=== PATIENT | male | born 1960 | race Caucasian/White ===

== ENCOUNTER 2025-09-04 15:28 | Outpatient (AMB) | payer OTHER, SELFPAY ==
--- NOTE | 2025-09-04 15:29 | MHC.PC.OV ---
Vital Signs 09/04/25 15:42 Height 5 ft 8 in Weight 204 lb 2 oz BMI 31.0 BP 168/68 H Blood Pressure Location Lt brachial Position Sitting Respiration 18 Pulse 96 Pulse Source Pulse Oximeter Temp 98 F Temp Source Oral Pulse Oximetry (%) 96 Oxygen Delivery Method Room Air Intake Visit Reasons: [employer]ER-Had two strokes Intake Note: Patient present to establish care. 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 Accompanied by: Self / Same As Patient Allergies No Known Allergies Allergy (Verified 09/04/25 15:37) Medication List - Last Reconciled 09/04/25 by Srinivas Schaefer MD No Known Home Meds Tobacco use date assessed: 09/04/25 Fall risk assessment: No Falls in past year Last assessed Fall Risk: 09/04/25 Dental Screening Dental Screen Date: 09/04/25 Did you have a dental visit in the last 12 months?: No Did you have a dental problem in the last 6 months where you did not have access to dental care?: No Was dental information given to patient?: Patient has dentist HPI HPI Comments History of Present Illness Details History of Present Illness The patient is a 65 year old male presenting for a general health evaluation and management of multiple concerns, including a history of stroke, elevated blood pressure, and bilateral shoulder pain. Hypertension: His blood pressure was noted to be slightly high during the visit, though he reports a past episode about three years ago where his high blood pressure resolved on its own after a visit for not feeling well. He has never taken medication for hypertension. History of cerebellar stroke: The patient has a history of a cerebellar stroke, after which he was told by doctors that they were surprised he was alive. He continues to feel that he is not fine and has not fully recovered from the event. At the time of the stroke, he experienced vomiting. Bilateral shoulder pain: The patient reports pain in both shoulders, with the right shoulder being more painful than the left. He mentions having had an X-ray in the past which showed some findings, but the specifics were not detailed. Fatigue and Insomnia: The patient reports poor sleep, sometimes requiring a pill, and waking up at various hours of the morning. He feels tired during the day and has not left his house much in the past two months. He denies being told that he stops breathing while asleep. Surgical History: - No prior surgical history was discussed. Medications: - Unspecified sleep aid taken occasionally for insomnia. Social History: - Substance Use: Denies ever smoking or using illicit drugs. - Alcohol Use: Reports drinking alcohol, primarily beer, sometimes. 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 - Functional Status: Reports feeling tired and has not been leaving the house much over the last two months. Family History: - Grandfather: of leukemia. - Father: of a stroke. - Mother: of multiple organ failure. Past Medical History - Cerebellar stroke - Hypertension, history of, not on treatment. - He has not been hospitalized for other reasons. - Colonoscopy was performed a long time ago and is due for a repeat. Health Maintenance - Colon cancer screening: The patient is due for a repeat colonoscopy. - A comprehensive lab panel was ordered for general health screening. [facility] Medical History (Updated 09/04/25 @ 16:34 by Srinivas Schaefer MD) Stroke Surgical History (Updated 09/04/25 @ 15:41 by Biju Alatorre CMA) No pertinent past surgical history Social History (Updated 09/04/25 @ 15:42 by Biju Alatorre CMA) Housing: House Alcohol intake: current Patient Tobacco Use Status: Never used Tobacco e-Cigarette/Vaping Use: Never Used service: No Current occupational status: retired Current occupational exposures/hazards: No Cognitive needs: No Hearing needs: No Vision needs: Yes Questionnaire PHQ-9 Over the last 2 weeks, how often have you been bothered by any of the following problems? 1. Little interest or pleasure in doing things: nearly every day 2. Feeling down, depressed, or hopeless: not at all 3. Trouble falling or staying asleep, or sleeping too much: not at all 4. Feeling tired or having little energy: nearly every day 5. Poor appetite or overeating: not at all 6. Feeling bad about yourself - or that you are a failure or have let yourself or your family down: not at all 7. Trouble concentrating on things, such as reading the newspaper or watching television: not at all 8. Moving or speaking so slowly that other people could have noticed. Or the opposite - being so fidgety or restless that you have been moving around a lot more than usual: not at all 9. Thoughts that you would be better off or of hurting yourself in some way: not at all Total score: 6 Depression Screening Interpretation: Negative Depression Screening Done: Yes 69414 - PHQ-9 Billing: Yes Source: Developed by Drs. Romario Edouard, Wendi Malhotra, Adams aMrtinez and colleagues, with an educational lisa from [employer]. Thrive Questionnaire Date Thrive assessed: 09/04/25 I am a: Patient What is your living situation today?: I have a steady place to live Within the past 12 months, did the food you bought not last and you didn't have the money to get more?: Never true Within the past 12 months, did you worry whether your food would run out before you got money to buy more?: Never true Do you have trouble paying for medicines?: No Do you have trouble getting transportation to medical appointments?: No Do you have trouble paying your heating and electricity bill?: No Do you have trouble taking care of your child, family member or friend?: No Are you currently unemployed and looking for a job?: No Are you interested in more education?: No Please select the resources that you would like help with: None Currently or been in a relationship where the following occur: No concerns reported THRIVE Score: 0 AUDIT C Alcohol Use Questionnaire (AUDIT-C) 1. How often do you have a drink containing alcohol?: Monthly or less 2. How many drinks containing alcohol do you have on a typical day when you are drinking?: 3 or 4 3. How often do you have six or more drinks on one occasion?: Monthly Total Score: 4 CRIS-7 AMB Questionnaire CRIS-7 Date CRIS - 7 assessed: 09/04/25 Feeling nervous, anxious, or on edge: 0 = Not at all Not being able to stop or control worryin = Not at all Worrying too much about different things: 0 = Not at all Trouble relaxin = Not at all Being so restless that it is hard to sit still: 0 = Not at all Becoming easily annoyed or irritable: 0 = Not at all Feeling afraid as if something awful might happen: 0 = Not at all Total CRIS-7 score (0-4 normal; 5-9 mild; 10-14 moderate; 15-21 severe): 0 Source: Developed by Drs. Romario Edouard, Wendi Malhotra, Adams Martinez and colleagues, with an educational lisa from [employer]. CRIS-7 Assessment Billing CRIS-7 Assessment Tool: CRIS-7 Assessment 13888 Review of Systems Narrative Review of Systems - Constitutional: Reports fatigue. - Neurological: Reports history of a cerebellar stroke and ongoing feeling of being unwell. - Musculoskeletal: Reports bilateral shoulder pain, worse on the right. - Psychiatric: Reports feeling stressed. - Sleep: Reports difficulty sleeping and not feeling rested. - Genitourinary: Reports decreased libido. - Endocrine: Denies symptoms of apnea during sleep. 10-point ROS reviewed and negative except as noted in HPI Physical exam (Primary Care) Vital Signs: Last Vital Signs Temp 98 F 09/04/25 15:42 Pulse 96 09/04/25 15:42 Resp 18 09/04/25 15:42 BP 168/68 H 09/04/25 15:42 Pulse Ox 96 09/04/25 15:42 Oxygen Delivery Method Room Air 09/04/25 15:42 BMI result Body Mass Index 31.0 Tobacco/Smoking Status: Tobacco use Status Tobacco use date assessed 09/04/25 09/04/25 15:47 Patient Tobacco Use Status Never used Tobacco 09/04/25 15:47 e-Cigarette/Vaping Use Never Used 09/04/25 15:47 PHQ-9: PHQ-9 Score PHQ-9: Total score 6 09/04/25 15:30 Depression Screening Interpretation: Negative Thrive Assessment: Date of Thrive Assessment Date Thrive assessed 09/04/25 09/04/25 15:30 Currently or been in a relationship where the following occur: No concerns reported Narrative Physical Exam General: Well-appearing, in no acute distress. Vital signs: Blood pressure is slightly elevated. HEENT: Normocephalic, atraumatic. PERRLA, EOMI. Conjunctiva clear, sclera anicteric. Oropharynx clear, mucous membranes moist. TMs intact bilaterally. Neck: Supple, no lymphadenopathy, no thyromegaly, no JVD or carotid bruits. Cardiovascular: RRR, normal S1/S2, no murmurs, rubs, or gallops. Peripheral pulses 2+ and symmetric. No edema. Respiratory: Lungs clear to auscultation bilaterally, no wheezes, rales, or rhonchi. Normal effort. Abdomen: Soft, non-tender, non-distended. Normoactive bowel sounds. No hepatosplenomegaly, no masses. MSK: Full range of motion, mild tremors noted. Pain in both shoulders, right more than left. No joint swelling or deformity. Normal gait. Skin: Warm, dry, intact. No rashes, lesions, or pallor. Neuro: Alert and oriented x3. Cranial nerves II-XII intact. Strength 5/5 throughout. Sensation intact. Reflexes 2+ symmetric. Normal coordination and gait. Psych: Appropriate mood and affect. Normal judgment and insight. Reports feeling tired and unrested, possibly due to sleep disturbances. Coding Level of Care Code New Pt Level 4 (19763) Add On Problem Visit Only Diagnoses History of CVA (cerebrovascular accident) Z86.73 Class 1 obesity E66.811 Hypertension I10 Bilateral shoulder pain M25.511; M25.512 Fatigue R53.83 Insomnia G47.00 Additional Codes CRIS-7 Assessment Billing - CRIS-7 Assessment Tool: CRIS-7 Assessment 74782 ([id number]) PHQ-9 - 88443 - PHQ-9 Billing: Yes ([id number]) Assessment & Plan Assessment & Plan (1) History of CVA (cerebrovascular accident): Code(s): Z86.73 - Personal history of transient ischemic attack (TIA), and cerebral infarction without residual deficits Category: Medical (2) Class 1 obesity: Code(s): E66.811 - Obesity, class 1 Category: Medical (3) Hypertension: Code(s): I10 - Essential (primary) hypertension Category: Medical (4) Bilateral shoulder pain: Code(s): M25.511 - Pain in right shoulder; M25.512 - Pain in left shoulder Category: Medical (5) Fatigue: Code(s): R53.83 - Other fatigue Category: Medical (6) Insomnia: Code(s): G47.00 - Insomnia, unspecified Category: Medical Plan Consent The patient verbally agreed to the plan for laboratory testing and home blood pressure monitoring. Patient was informed and verbally consented to the use of an ambient scribe for clinic note documentation during this visit. Plan 1. Hypertension - The patient's blood pressure is slightly elevated today. - A prescription for a home blood pressure monitoring device will be provided. - The patient is instructed to check his blood pressure twice daily, in the morning and evening, for two weeks. - He is to bring the log of his readings to the follow-up appointment in two weeks to determine if antihypertensive medication is necessary. 2. General Health Screening - Comprehensive laboratory studies will be ordered. - Labs to include a complete blood count (CBC), comprehensive metabolic panel (CMP), hemoglobin A1c, lipid panel, vitamin B12, folate, vitamin D, thyroid studies, hepatitis B, HIV, and syphilis. - The patient is advised to complete the lab work on Wednesday or the following Wednesday. - A follow-up visit is scheduled in two weeks to review the results. 3. Colon Cancer Screening - The patient is overdue for a colonoscopy. - A referral will be placed for him to schedule the procedure. Discussion Notes I discussed with the patient that his blood pressure was slightly elevated today. I explained the plan to have him monitor his blood pressure at home for two weeks to determine if he has hypertension and requires medication, and I provided a prescription for a BP cuff. I also explained the need for a comprehensive set of blood tests to evaluate his overall health, given his symptoms and family history, which will include checks on his blood counts, kidney and liver function, electrolytes, sugar, cholesterol, and various vitamin levels and infectious diseases. We discussed that he is overdue for a colonoscopy, and I informed him I would place a referral for this screening. The patient agreed with the plan and will follow up in two weeks to review all results. Patient Instructions - You will receive a prescription for a blood pressure machine. - Check your blood pressure two times every day (in the morning and at night) for the next two weeks. - Please write down your blood pressure numbers and bring the log with you to your next visit. - Please go to the lab to have your blood drawn this Wednesday or next Wednesday. - Our office will put in a referral for you to get a colonoscopy. - Please return to the clinic for a follow-up appointment in two weeks to discuss your results. Medical Decision Making The patient is a 65-year-old male with a significant past medical history of a cerebellar stroke and a new finding of elevated blood pressure during this visit. Given his history and the isolated elevated reading, a diagnosis of essential hypertension is not yet confirmed. The most prudent initial step is to establish a pattern with home blood pressure monitoring over two weeks before considering initiation of pharmacotherapy. His subjective complaints of fatigue, poor sleep, and a general feeling of being unwell, combined with a family history of leukemia and stroke, warrant a broad diagnostic investigation. A comprehensive laboratory panel was ordered to screen for common metabolic, hematologic, endocrine, and infectious causes for his symptoms. Due to his age and the long interval since his last screening, a referral for a colonoscopy is clinically indicated for colorectal cancer prevention. A follow-up in two weeks is planned to integrate the data from home BP monitoring and laboratory results to formulate a more definitive treatment plan. Total Time Statement 45 min Total time spent caring for the patient today includes pre-visit chart review, documentation, review of laboratory and diagnostic imaging results, medication reconciliation, medically necessary evaluation, counseling on diagnoses, care coordination, ordering appropriate tests and medications, review of tests performed by other providers, reporting test results to the patient, and communication with other healthcare providers. Orders: Orders TSH reflex Free T4 Today Z13.9 - Encounter for screening, unspecified HIV Ab/Ag Today Z13.9 - Encounter for screening, unspecified Vitamin B12 and Folate Today Z13.9 - Encounter for screening, unspecified Magnesium Today Z13.9 - Encounter for screening, unspecified Vitamin D 25-OH (D2 and D3) Today Z13.9 - Encounter for screening, unspecified Testosterone, Free/Total Today Z13.9 - Encounter for screening, unspecified Microalbumin, Random (w Creat) Today I10 - Essential (primary) hypertension, Z13.9 - Encounter for screening, unspecified RT home sleep study Today G47.00 - Insomnia, unspecified Complete Blood Count Auto Diff Today Z13.9 - Encounter for screening, unspecified Hepatitis B Surface Antigen Today Z13.9 - Encounter for screening, unspecified Syphilis Screen Today Z13.9 - Encounter for screening, unspecified Comprehensive Met. Panel Today Z13.9 - Encounter for screening, unspecified Hepatitis C Antibody Today Z13.9 - Encounter for screening, unspecified UA CC w/rflx Micro + Cult Today Z13.9 - Encounter for screening, unspecified Lipid Panel Today Z13.9 - Encounter for screening, unspecified Hemoglobin A1c Today Z13.9 - Encounter for screening, unspecified Hepatitis B Surface Antibody Today Z13.9 - Encounter for screening, unspecified Referrals Open Access Screening Colonoscopy Referral Z12.11 - Encounter for screening for malignant neoplasm of colon, Z12.12 - Encounter for screening for malignant neoplasm of rectum Medications: New [blood pressure kit] As directed 1 ea 0RF I10 - Essential (primary) hypertension
[2025-09-04 15:42] VITALS: BP 168/68; PULSE 96; RESP 18; TEMP 36.6; O2SAT 96; BMI 31.0
== END 2025-09-04 16:19 | disposition home or self-care (01) ==
LOC: HO.HMCFMS 15:28
PROVIDERS: PCP Student in an Organized Health Care Education/Training Program; Visit Provider Student in an Organized Health Care Education/Training Program
DX: Z86.73 Personal history of transient ischemic attack (TIA), and cerebral infarction without residual deficits (principal); E66.811 Obesity, class 1; I10 Essential (primary) hypertension; M25.511 Pain in right shoulder; M25.512 Pain in left shoulder; R53.83 Other fatigue; G47.00 Insomnia, unspecified

== ENCOUNTER → 2025-09-04 15:28 | Outpatient (BNVA) | payer OTHER, SELFPAY | PROVIDERS: PCP Student in an Organized Health Care Education/Training Program; Visit Provider Student in an Organized Health Care Education/Training Program | DX: I10 Essential (primary) hypertension (principal); E66.811 Obesity, class 1; Z68.31 Body mass index [BMI] 31.0-31.9, adult; M25.511 Pain in right shoulder; M25.512 Pain in left shoulder; R53.83 Other fatigue; G47.00 Insomnia, unspecified; Z86.73 Personal history of transient ischemic attack (TIA), and cerebral infarction without residual deficits; Z13.31 Encounter for screening for depression; Z13.39 Encounter for screening examination for other mental health and behavioral disorders | CPT/HCPCS: 96127 ==